=== PATIENT | female | born 1965 | race Asian ===

== ENCOUNTER 2020-08-04 10:53 | Emergency (ER) | payer OTHER ==
[~2020-08-04] VITALS: Ht 154.9 cm; Wt 54.5 kg
[2020-08-04] MEDS ORDERED: ASPI-1450 PO (10:57)
[2020-08-04] MEDS ORDERED: IBUPROFEN 600 MG TABLET PO ONE (13:00)
[2020-08-04] MEDS ORDERED: AmLODIPine BESYLATE 5 MG TABLET PO ONE (13:15)
[2020-08-04 13:51] VITALS: BP 156/95
== END 2020-08-04 13:51 | disposition home or self-care (01) ==
LOC: EDSEX 11:08 → EMS 11:08
DX: S13.4XXA Sprain of ligaments of cervical spine, initial encounter (principal); M25.512 Pain in left shoulder; Z79.82 Long term (current) use of aspirin; V43.52XA Car driver injured in collision with other type car in traffic accident, initial encounter; Y93.9 Activity, unspecified; Y92.89 Other specified places as the place of occurrence of the external cause; Y99.8 Other external cause status
CPT/HCPCS: 70450; 72100; 72125; 99285

== ENCOUNTER 2021-02-20 16:31 | Emergency (ER) | payer OTHER ==
[~2021-02-20] VITALS: Ht 154.9 cm; Wt 59.1 kg
[~2021-02-20 16:31] MED LIST: ASPI-1450 PO
[2021-02-20 17:55] VITALS: BP 150/94
[2021-02-20] MEDS ORDERED: ACETAMINOPHEN 500 MG TABLET PO ONE (18:15)
[2021-02-20 18:26] LABS: GLUCOSE,POINT OF CARE 139 MG/DL (70-110)
[2021-02-20 18:30] LABS: BASOPHILS % (AUTO) 0.6 % (0.0-2.0); EOSINOPHILS % (AUTO) 1.5 % (1.0-6.0); HEMATOCRIT 41.2 % (36-46); LYMPHOCYTES % (AUTO) 45.1 % (22.0-44.0); MEAN CORPUSCULAR HEMOGLOBIN 29.5 pg (26.0-34.0); MEAN CORPUSCULAR HGB CONC 33.9 G/dL (31.0-37.0); MEAN CORPUSCULAR VOLUME 87 fL (80-100); MONOCYTES # (AUTO) 0.8 K/uL (0.1-1.0); MONOCYTES % (AUTO) 8.7 % (2.0-9.0); NEUTROPHILS # (AUTO) 3.9 K/uL (1.8-7.7); NEUTROPHILS % (AUTO) 44.1 % (40.0-70.0); PLATELET COUNT (AUTO) 278 K/uL (150-450); RED BLOOD CELL COUNT(AUTO) 4.73 MIL/uL (4.00-5.20); RED CELL DISTRIBUTION WIDTH 12.9 % (11.5-14.5)
[2021-02-20 19:31] LABS: B-TYPE NATRIURETIC PEPTIDE 13 pg/mL (0-100)
[2021-02-20 19:41] LABS: ANION GAP 9 mmol/L (8-16); CARBON DIOXIDE 28 mmol/L (22-29); CHLORIDE 107 mmol/L (98-107); GLOMERULAR FILTR. RATE CALC > 60 mL/min (>60); GLUCOSE,RANDOM 140 mg/dL (70-110); SODIUM SERUM 144 mmol/L (136-145); UREA NITROGEN, BLOOD 12 mg/dL (7-18)
[2021-02-20 19:47] LABS: ALANINE AMINOTRANSFERASE 19 U/L (12-78); ALBUMIN 3.7 g/dL (3.4-5.0); ALKALINE PHOSPHATASE 77 U/L (46-116); ASPARTATE AMINOTRANSFERASE < 5 U/L (15-37); BILIRUBIN,TOTAL 0.3 mg/dL (0.1-1.0); CREATINE KINASE, TOTAL ONLY 53 U/L (26-192); PHOSPHORUS 3.2 mg/dL (2.5-4.9); TOTAL PROTEIN, SERUM 7.2 g/dL (6.4-8.2)
[2021-02-20 20:41] LABS: APPEARANCE,URINE CLEAR (CLEAR); BILIRUBIN,URINE NEGATIVE (NEGATIVE); GLUCOSE, URINE (UA) NEGATIVE (NEGATIVE); KETONES,URINE NEGATIVE (NEGATIVE); LEUKOCYTE ESTERASE ,URINE NEGATIVE (NEGATIVE); NITRATE,URINE NEGATIVE (NEGATIVE); OCCULT BLOOD,URINE NEGATIVE (NEGATIVE); PROTEIN,URINE NEGATIVE (NEGATIVE)
== END 2021-02-20 21:04 | disposition home or self-care (01) ==
LOC: EMS 16:39
DX: R51.9 Headache, unspecified (principal); R20.2 Paresthesia of skin
CPT/HCPCS: 80053; 81003; 82550; 82962; 83735; 83880; 84100; 84484; 85025; 93005; 99284